=== PATIENT | female | born 1980 | race Caucasian/White ===

== ENCOUNTER 2018-08-22 23:24 | Emergency (ER) | payer MEDICAID ==
[~2018-08-22] VITALS: Ht 157.5 cm; Wt 97.3 kg
[~2018-08-22 23:24] MED LIST: NAPR-985 PO; NORE-69 PO
[2018-08-22 23:28] VITALS: Ht 157.5 cm; Wt 97.3 kg
[2018-08-23] MEDS ORDERED: SOD CHLORIDE 0.9% 1,000 ML IV STA (01:06)
[2018-08-23] MEDS ORDERED: KETOROLAC 15 MG INJ IV STA (01:06)
[2018-08-23] MEDS ORDERED: NAPR-985 PO (04:12)
[2018-08-23] MEDS ORDERED: ONDA4TAB14 PO (04:12)
[2018-08-23] MEDS ORDERED: HYDR-4011 PO (04:12)
[2018-08-23 04:23] VITALS: BP 153/82; PULSE 73; RESP 16
--- NOTE | 2018-08-23 04:48 | ERD ---
ER Documentation Chief Complaint Chief Complaint RUQ RADIATES TO BACK; NO N/V/D/C; DENIES UTI S/S X2DAYS HPI Patient is a 38-year-old female with no significant past medical history presenting to the emergency department complaining of right upper quadrant pain intermittently for the past 5 days. Pain is rated 8/10 in severity and ibuprofen provides relief. Patient denies any nausea, vomiting, diarrhea, fevers, chills, or other symptoms at this time. ROS All systems reviewed and are negative except as per history of present illness. Medications Home Meds Active Scripts Ondansetron (Ondansetron Odt) 4 Mg Tab.rapdis, 4 MG PO Q6H PRN for NAUSEA AND/OR VOMITING, #10 TAB Prov:EMILEE JIMENEZ PA-C 08/23/18 Naproxen* (Naprosyn*) 500 Mg Tablet, 500 MG PO BID PRN for PAIN AND/OR INFLAMMATION, #30 TAB Prov:EMILEE JIMENEZ PA-C 08/23/18 Hydrocodone/Acetaminophen (Amboy 5-325 Tablet) 1 Each Tablet, 1 TAB PO Q6H PRN for PAIN, #7 TAB Prov:EMILEE JIMENEZ PA-C 08/23/18 Naproxen* (Naprosyn*) 500 Mg Tablet, 500 MG PO BID PRN for PAIN AND/OR INFLAMMATION, #30 TAB Prov:EMILEE FARRELL 11/27/15 Reported Medications Norethindrone-E.estradiol-Iron (Iwsiqtbr-Ppltlg-Evwu 1-0.02 mg) 1 Each Tablet, 1 TAB PO DAILY 11/26/15 Allergies Allergies: Coded Allergies: No Known Allergy (Unverified , 10/05/15) PMhx/Soc History of Surgery: Yes () Anesthesia Reaction: No Hx Neurological Disorder: No Hx Respiratory Disorders: No Hx Cardiac Disorders: No Hx Psychiatric Problems: No Hx Miscellaneous Medical Probl: No Hx Alcohol Use: No Hx Substance Use: No Hx Tobacco Use: No Smoking Status: Never smoker FmHx Family History: No diabetes Physical Exam Vitals Vital Signs Date Temp Pulse Resp B/P (MAP) Pulse Ox O2 O2 Flow FiO2 Time Delivery Rate 08/23/18 98.3 73 16 153/82 97 Room Air 04:23 (105) 08/22/18 98.3 68 19 135/79 96 23:28 (97) Physical Exam Const: No acute distress Head: Atraumatic Eyes: Normal Conjunctiva ENT: Normal External Ears, Nose and Mouth. Neck: Full range of motion. No meningismus. Resp: Clear to auscultation bilaterally Cardio: Regular rate and rhythm, no murmurs Abd: Patient has tenderness to palpation of the right upper quadrant, McBurney's point, right pelvic region. No rebound tenderness or guarding. Active bowel sounds. Skin: No petechiae or rashes Back: No midline or flank tenderness Ext: No cyanosis, or edema Neur: Awake and alert Psych: Normal Mood and Affect Result Diagram: 08/23/18 0122 08/23/18 0122 Results 24 hrs Laboratory Tests Test 08/23/18 01:14 08/23/18 01:19 08/23/18 01:22 Urine Color YELLOW Urine Clarity SLIGHTLY CLOUDY Urine pH 5.0 Urine Specific [place] 1.019 Urine Ketones NEGATIVE mg/dL Urine Nitrite NEGATIVE mg/dL Urine Bilirubin NEGATIVE mg/dL Urine Urobilinogen NEGATIVE mg/dL Urine Leukocyte Esterase NEGATIVE Mukul/ul Urine Microscopic RBC 2 /HPF Urine Microscopic WBC 1 /HPF Urine Squamous Epithelial Cells FEW /HPF Urine Bacteria FEW /HPF Urine Hemoglobin 2+ mg/dL Urine Glucose NEGATIVE mg/dL Urine Total Protein NEGATIVE mg/dl POC Beta HCG, Qualitative NEGATIVE White Blood Count 13.2 10^3/ul Red Blood Count 4.51 10^6/ul Hemoglobin 12.7 g/dl Hematocrit 39.2 % Mean Corpuscular Volume 86.9 fl Mean Corpuscular Hemoglobin 28.2 pg Mean Corpuscular 32.4 g/dl Hemoglobin Concent Red Cell Distribution Width 13.5 % Platelet Count 298 10^3/UL Mean Platelet Volume 10.0 fl Immature Granulocytes % 1.400 % Neutrophils % 61.2 % Lymphocytes % 30.2 % Monocytes % 5.3 % Eosinophils % 1.6 % Basophils % 0.3 % Nucleated Red Blood Cells % 0.0 /100WBC Immature Granulocytes # 0.190 10^3/ul Neutrophils # 8.1 10^3/ul Lymphocytes # 4.0 10^3/ul Monocytes # 0.7 10^3/ul Eosinophils # 0.2 10^3/ul Basophils # 0.0 10^3/ul Nucleated Red Blood Cells # 0.0 10^3/ul Prothrombin Time 12.0 Sec Prothrombin Time Ratio 0.9 INR International 0.88 Normalized Ratio Activated Partial Thromboplast 27.5 Sec Time Sodium Level 143 mmol/L Potassium Level 4.0 mmol/L Chloride Level 103 mmol/L Carbon Dioxide Level 29 mmol/L Anion Gap 11 Blood Urea Nitrogen 15 mg/dl Creatinine 0.71 mg/dl Est Glomerular Filtrat > 60 mL/min Rate mL/min Glucose Level 88 mg/dl Calcium Level 9.3 mg/dl Total Bilirubin 0.2 mg/dl Direct Bilirubin 0.00 mg/dl Indirect Bilirubin 0.2 mg/dl Aspartate Amino 14 IU/L Transf (AST/SGOT) Alanine 19 IU/L Aminotransferase (ALT/SGPT) Alkaline Phosphatase 91 IU/L Total Protein 7.5 g/dl Albumin 4.1 g/dl Globulin 3.40 g/dl Albumin/Globulin Ratio 1.20 Lipase 68 U/L Current Medications Medications Dose Sig/Sera Start Time Status Last (Trade) Ordered Route PRN Stop Time Admin Dose Reason Admin Sodium 1,000 ml @ Q1H STAT 08/23/18 DC 08/23/18 Chloride 1,000 mls/hr IV 01:06 01:25 08/23/18 02:05 Ketorolac 15 mg ONCE STAT 08/23/18 DC 08/23/18 Tromethamine IV 01:06 01:25 (Toradol) 08/23/18 01:07 [place] [address] Radiology Main Line: [phone] DIAGNOSTIC IMAGING REPORT Patient: DIANA BRASWELL : 1980 Age: 38 Sex: F [id number] [id number] DOS: 08/23/18 0218 Ordering MD: EMILEE JIMENEZ PA-C Location: [facility] Room/Bed: PROCEDURE: US Pelvis Non-OB Abdominal CLINICAL INDICATION: Pelvic pain. TECHNIQUE: Sonographic imaging of the pelvis was performed using transabdominal and transvaginal techniques. Grayscale and color Doppler was utilized. COMPARISON: CT abdomen and pelvis from the same day. FINDINGS: UTERUS: Measures 9.5 x 3.8 x 6.2 cm without appreciated abnormality. ENDOMETRIAL STRIPE: 0.4 cm in thickness. RIGHT OVARY: Measures 6.0 x 4.9 x 5.4 cm with 4.3 x 4.1 x 4.0 cm cyst again seen. Surrounding parenchymal vascular flow is demonstrated. LEFT OVARY: Not identified. FREE FLUID: None. IMPRESSION: 1. 4.3 x 4.1 x 4.0 cm right ovarian cyst is again seen with surrounding parenchymal vascular flow. 2. The left ovary is not identified. RPTAT:HGST Nader Gallegos, Physician Date Time Electronically viewed and signed by Nader Gallegos Physician on 08/23/2018 03:42 GT/ CC: EMILEE JIMENEZ PA-C [id number] [place] [address] Radiology Main Line: [phone] DIAGNOSTIC IMAGING REPORT Patient: DIANA BRASWELL : 1980 Age: 38 Sex: F MR #: [id number] DOS: 08/23/18 0106 Ordering MD: EMILEE JIMENEZ PA-C Location: [facility] Room/Bed: PROCEDURE: CT Abdo and Pelvis w/o IV Cont CLINICAL INDICATION: Abdominal pain. TECHNIQUE: Contiguous axial imaging was performed through the abdomen and pelvis without contrast. Coronal and sagittal reformatting was utilized. DICOM images are available. Lack of intravenous contrast causes limitation in evaluation of the solid organs and vasculature. Lack of oral contrast causes limitation of the gastrointestinal tract. CTDIvol: 22.69 mGy mGy. Total Exam DLP: 1395.21 mGy.cm mGy-cm. This CT exam was performed using one or more of the following dose reduction techniques: Automated exposure control, adjustment of the mA and/or kV according to patient size, use of iterative reconstruction technique. COMPARISON: Ultrasound of the right upper quadrant from the same day. FINDINGS: VISUALIZED LUNG BASES: Appear clear. LIVER: Unremarkable. SPLEEN: Unremarkable. PANCREAS: Unremarkable. GALLBLADDER: Gallstones are again seen. ADRENAL GLANDS: Unremarkable. RIGHT KIDNEY: Unremarkable. LEFT KIDNEY: Unremarkable. ADENOPATHY: None. VASCULATURE: Unremarkable for this non-angiographic study. GI TRACT: There is no bowel dilatation to suggest obstruction. No inflammatory changes of the bowel are appreciated. APPENDIX: Unremarkable. PELVIC STRUCTURES: 5.1 x 5.2 cm right ovarian cyst is present. Linear metallic density is seen along the left anterior margin of the uterine fundus. OTHER SOFT TISSUES: Unremarkable. OSSEOUS STRUCTURES: Unremarkable. IMPRESSION: 1. 5.1 x 5.2 cm right ovarian cyst. Ultrasound may be helpful for further evaluation if warranted. 2. Linear metallic density is seen along the left anterior margin of the uterine fundus. Correlation is suggested. Essure filament may be considered although this may reside outside the fallopian tube and no filament is seen on the right. 3. Gallstones. RPTAT:HGST Nader Gallegos Physician Date Time Electronically viewed and signed by Nader Gallegos Physician on 08/23/2018 02:09 GT/ CC: EMILEE JIMENEZ PA-C [id number] [place] [address] Radiology Main Line: [phone] DIAGNOSTIC IMAGING REPORT Patient: DIANA BRASWELL : 1980 Age: 38 Sex: F MR #: [id number] DOS: 08/23/18 0106 Ordering MD: EMILEE JIMENEZ PA-C Location: [facility] Room/Bed: PROCEDURE: Ultrasound right upper quadrant CLINICAL INDICATION: Abdominal pain. TECHNIQUE: Sonographic imaging of the right upper quadrant was performed with grayscale and color Doppler techniques. COMPARISON: Subsequent CT abdomen and pelvis performed on the same day. FINDINGS: LIVER: Measures 18.6 cm in length with echogenicity suggesting fatty infiltrat ion. GALLBLADDER: Gallstones are present. There is no wall thickening or pericholecystic fluid. COMMON BILE DUCT: Measures up to 0.4 cm. VISUALIZED PANCREAS: Unremarkable. RIGHT KIDNEY: Measures 11.0 cm in length without appreciated abnormality. VISUALIZED AORTA AND INFERIOR VENA CAVA: Unremarkable. IMPRESSION: 1. Gallstones are present without additional sonographic evidence for acute cholecystitis. 2. Mildly enlarged liver with suggestion of fatty infiltration. RPTAT:HGST Nader Gallegos Physician Date Time Electronically viewed and signed by Nader Gallegos, Physician on 08/23/2018 02:12 GT/ CC: EMILEE JIMENEZ PA-C [id number] Procedures/MDM 38-year-old female is presenting to the emergency department complaining of right pelvic, right lower quadrant and right upper quadrant pain. Workup was m ost consistent with cholelithiasis without evidence of cholecystitis. The patient also had a large right-sided ovarian cyst. Full reports from radiologist may be viewed above. Patient's pain was significant the improved with IV Toradol. CBC: no e/o of systemic infection or severe anemia CMP: no e/o severe acidosis, alkalosis, renal failure, diabetic ketoacidosis, liver disease Lipase: no e/o pancreatitis PT/INR: normal coagulation Urine: no e/o acute infection or hematuria No evidence to suggest acute surgical abdomen, ovarian torsion, ectopic , or other emergencies. Patient agreed with the diagnosis, plan, need for follow-up, return precautions. Patient's blood pressure was elevated (>120/80) but appears stable without evidence of hypertension emergency or urgency. The patient is to follow-up and pursue outpatient monitoring and therapy with their primary care physician within 1 week and return immediately if they have any new, worsening, or concerning symptoms. Disclaimer: Inadvertent spelling and grammatical errors are likely due to EHR/dictation software use and do not reflect on the overall quality of patient care. Also, please note that the electronic time recorded on this note does not necessarily reflect the actual time of the patient encounter. Departure Diagnosis: Primary Impression: Ovarian cyst Laterality: right Qualified Codes: N83.201 - Unspecified ovarian cyst, right side Condition: Fair Patient Instructions: What Are Ovarian Cysts? Referrals: [facility] Usted se cox hecho un examen mdico de control que le indica que no est en fabián condicin que requiera tratamiento urgente en el Departamento de Emergencia. Un estudio ms profundo y el tratamiento de cadena condicin pueden esperar sin ningn riesgo hasta que usted sea atendida/o en el consultorio de cadena mdico o fabián clnica. Es responsabilidad suya arreglar fabián preethi para el seguimiento del leia. MANEJO DE CONDICIONES NO URGENTES EN EL FUTURO 1) Si usted tiene un mdico de atencin primaria: Usted debera llamar a cadena mdico de atencin primaria antes de venir al departamento de emergencia. Despus de las horas de consultorio, cadena doctor o cadena asociado/a est disponible por telfono. El mdico o enfermero de joy en el servicio telefnico puede asesorarle por yousif medio para atender el problema, o leia contrario se puede programar fabián preethi. 2) Si usted no tiene un mdico de atencin primaria: Llame al mdico o clnica de referencia que aparece abajo nabeel las horas de consultorio para hacer fabián preethi para que le vean. CLINICAS: [facility] [phone] [facility] [phone] [facility] [phone] [facility] [phone] [place] [phone] [facility]. [phone] NASEEM MURRELL [employer] [place] [address] [facility] [address] [place] [address] OFFICE FAX , SYDNI [address] [place] [address] [address] MUNOZ, [place] [address] [place] [address] [address] RODRIGUES, [facility] [address] [facility], [address], [place] [address] DR WIL[facility] [address] [facility] [place] [address] [facility] [address] [place] [address] [phone] [facility] [phone] - [address] PHILLIPS, JOSE [address], [place] [address] DR MCDANIEL, EMMANUEL [address] [facility]. [address], [place] [address] DR OSEGUERA, FARPR [address] [place], [place] [id number] Additional Instructions: Llame al doctor MAANA y gabino fabián PREETHI PARA DENTRO DE 1-2 SHEPHERD.Dgale a la secretaria que nosotros le instruimos hacer esta preethi.Avise o llame si cadena condicin se empeora antes de la preethi. Regresa aqui si peor o no mejor. EMILEE JIMENEZ PA-C Aug 23, 2018 04:48
== END 2018-08-23 04:23 | disposition home or self-care (01) ==
LOC: FTE 23:24
DX: N83.201 Unspecified ovarian cyst, right side (principal); R10.2 Pelvic and perineal pain
CPT/HCPCS: 36415; 74176; 76705; 76830; 76856; 80053; 81001; 81025; 83690; 85025; 85610; 85730; 96374; J1885; J7030; Z7502

== ENCOUNTER 2018-11-10 08:13 | Emergency (ER) | payer MEDICAID ==
[~2018-11-10] VITALS: Wt 74.0 kg
[~2018-11-10 08:13] MED LIST changes: +HYDR-4011 PO; +ONDA4TAB14 PO
--- NOTE | 2018-11-10 09:46 | ERD ---
ER Documentation Chief Complaint Chief Complaint ABD PAIN X 4 DAYS HPI 38-year-old female, presents to the emergency department, complaining of diffuse abdominal pain for 4 days, associated with distention and acid reflux. The patient denies nausea, no vomiting, no fever or chills. ROS All systems reviewed and are negative except as per history of present illness. Medications Home Meds Active Scripts Omeprazole* (Omeprazole*) 40 Mg Capsule.dr, 40 MG PO DAILY, #30 CAP Prov:SAMEER MEDRANO MD 11/10/18 Simethicone (Simethicone) 180 Mg Capsule, 180 MG PO TID PRN for DISTENSION/GAS/BLOATING, #20 CAP Prov:SAMEER MEDRANO MD 11/10/18 Ondansetron (Ondansetron Odt) 4 Mg Tab.rapdis, 4 MG PO Q6H PRN for NAUSEA AND/OR VOMITING, #10 TAB Prov:EMILEE JIMENEZ PA-C 08/23/18 Naproxen* (Naprosyn*) 500 Mg Tablet, 500 MG PO BID PRN for PAIN AND/OR INFLAMMATION, #30 TAB Prov:EMILEE JIMENEZ PA-C 08/23/18 Hydrocodone/Acetaminophen (Hilo 5-325 Tablet) 1 Each Tablet, 1 TAB PO Q6H PRN for PAIN, #7 TAB Prov:EMILEE JIMENEZ PA-C 08/23/18 Naproxen* (Naprosyn*) 500 Mg Tablet, 500 MG PO BID PRN for PAIN AND/OR INFLAMMATION, #30 TAB Prov:EMILEE FARRELL 11/27/15 Reported Medications Norethindrone-E.estradiol-Iron (Tqyjgmak-Gsqluo-Hkxo 1-0.02 mg) 1 Each Tablet, 1 TAB PO DAILY 11/26/15 Allergies Allergies: Coded Allergies: No Known Allergy (Unverified , 10/05/15) PMhx/Soc History of Surgery: Yes () Anesthesia Reaction: No Hx Neurological Disorder: No Hx Respiratory Disorders: No Hx Cardiac Disorders: No Hx Psychiatric Problems: No Hx Miscellaneous Medical Probl: No Hx Alcohol Use: No Hx Substance Use: No Hx Tobacco Use: No FmHx Family History: No diabetes, No coronary disease Physical Exam Vitals Vital Signs Date Temp Pulse Resp B/P (MAP) Pulse Ox O2 O2 Flow FiO2 Time Delivery Rate 11/10/18 98.1 81 18 130/65 99 08:15 (86) Physical Exam Const: No acute distress Head: Atraumatic Eyes: Normal Conjunctiva ENT: Normal External Ears, Nose and Mouth. Neck: Full range of motion. No meningismus. Resp: Clear to auscultation bilaterally Cardio: Regular rate and rhythm, no murmurs Abd: Soft, non tender, non distended. Normal bowel sounds Skin: No petechiae or rashes Back: No midline or flank tenderness Ext: No cyanosis, or edema Neur: Awake and alert Psych: Normal Mood and Affect Results 24 hrs Laboratory Tests Test 11/10/18 10:21 11/10/18 10:37 POC Beta HCG, Qualitative NEGATIVE Bedside Urine pH (LAB) 6.0 Bedside Urine Protein (LAB) Trace Bedside Urine Glucose (UA) Negative Bedside Urine Ketones (LAB) Negative Bedside Urine Blood 1+ Bedside Urine Nitrite (LAB) Negative Bedside Urine Leukocyte Esterase (L Negative Current Medications Medications Dose Sig/Sera Start Time Status Last (Trade) Ordered Route PRN Stop Time Admin Dose Reason Admin Ketorolac 30 mg ONCE STAT 11/10/18 DC 11/10/18 Tromethamine IM 10:35 11/10/18 10:40 (Toradol) 10:36 Procedures/MDM Vital signs stable. Differential diagnosis include but not limited to: Gastritis, gastroenteritis, cholelithiasis, cholecystitis, kidney stones, irritable bowel syndrome, inflammatory bowel syndrome, malabsorption syndrome, food intolerance, medication side effect, pancreatitis, diverticulitis, bowel obstruction. Physical examination and clinical presentation consistent most likely with acute gastritis. During the ED course the patient remained stable, no new complaints. Results and clinical impression discussed with the patient who agrees with management. The patient is stable to be treated outpatient and will be discharged home with a Rx for simethicone and omeprazole, some side effects of prescribed medications (headache, rash, nausea, vomiting, diarrhea, drowsiness, habituation, bleeding, hypertension, interactions with other medications) were reviewed. Follow up with the primary care provider in the next 48h is recommended. If symptoms persist, worsen or new symptoms develop, then patient should return to the ED immediately. Instructions explained and given directly by me to the patient with acknowledgment and demonstrated understanding. Disclaimer: Inadvertent spelling and grammatical errors are likely due to EHR/dictation software use and do not reflect on the overall quality of patient care. Also, please note that the electronic time recorded on this note does not necessarily reflect the actual time of the patient encounter. Departure Diagnosis: Primary Impression: GERD (gastroesophageal reflux disease) Condition: Stable Additional Instructions: Muchas wes por [facility] para cadena servicio. Esperamos que en cadena visita a la radha de emergencia cadena problema medico haya sido solucionado y que se sienta mucho mejor. Para estar seguros que cadena mejoria sigue en proceso, le pedimos el favor de hacer fabián beth de seguimiento medico con cadena doctor primario en los proximos 2-4 bae. Lleve con usted estos documentos y las medicinas recetadas. Si ken sintomas empeoran, NO SE ESPERE, por favor regrese a radha de emergencia INMEDIATAMENTE. En leia que usted no tenga un mdico de atencin primaria: Llame al mdico o clnica comunitaria de referencia que aparece abajo nabeel las horas de consultorio para hacer fabián beth para que le vean. CLINICAS: [facility] [phone] [facility] [phone] [facility] [phone] [facility] [phone] [facility] [phone] [address] [facility]. [phone] SAMEER MCGARRY MD Nov 10, 2018 09:46
[2018-11-10] MEDS ORDERED: OMEP40CA6 PO (10:27)
[2018-11-10] MEDS ORDERED: SIME180C39 PO (10:27)
[2018-11-10] MEDS ORDERED: KETOROLAC 30 MG INJ IM STA (10:35)
[2018-11-10 11:39] VITALS: BP 128/62; PULSE 66; RESP 18
== END 2018-11-10 11:40 | disposition home or self-care (01) ==
LOC: FTE 08:13
DX: K21.9 Gastro-esophageal reflux disease without esophagitis (principal)
CPT/HCPCS: 81003; 81025; 96372; J1885; Z7502